=== PATIENT | male | born 1945 | race African-American/Black ===

== ENCOUNTER 2019-10-31 17:31 | Inpatient (IN) | payer BC, MEDICARE, OTHER ==
[~2019-10-31] VITALS: Ht 190.5 cm; Wt 78.2 kg
[2019-10-31 19:42] LABS: BASOPHILS % 0.7 % (0.0-2.0); EOSINOPHILS % 0.6 % (0.0-5.0); HEMATOCRIT. 37.6 % (42.0-52.0); HEMOGLOBIN. 12.7 g/dL (14.0-18.0); MEAN CORPUSCULAR HEMOGLOBIN 31.8 pg (28.0-32.0); MEAN CORPUSCULAR VOLUME 93.7 fL (80.0-94.0); MONOCYTES % 4.8 % (2.0-8.0); NEUTROPHILS % 83.9 % (40.0-76.0); PLATELET 200 x1000/uL (130-400); RED BLOOD CELL COUNT 4.01 mill/uL (4.7-6.1); RED CELL DISTRIBUTION WIDTH 13.7 % (11.6-14.6)
[2019-10-31 19:49] LABS: CHLORIDE 113 mEq/L (98-107)
[2019-10-31 19:53] LABS: ETHANOL BLOOD < 10 mg/dL
[2019-11-01] MEDS ORDERED: ASPIRIN 325MG TABLET PO ONE (02:00)
[2019-11-01 04:38] LABS: CLARITY URINE CLOUDY (CLEAR); COLOR URINE DARK YELLOW (YELLOW); KETONES URINE TRACE (NEGATIVE); LEUKOCYTE ESTERASE URINE TRACE (NEGATIVE); NITRITE URINE NEGATIVE (NEGATIVE); OCCULT BLOOD URINE TRACE (NEGATIVE); PROTEIN URINE 1+ (NEGATIVE); SPECIFIC GRAVITY URINE 1.031 (1.005-1.030)
[2019-11-01 04:46] LABS: *BARBITURATES SCREEN URINE NEGATIVE (NEGATIVE); CANNABINOID URINE SCREEN PRESUMTIVE POSITIVE (NEGATIVE)
[2019-11-01 04:47] LABS: *AMPHETAMINES SCREEN URINE NEGATIVE (NEGATIVE); *BENZODIAZEPINES SCREEN URINE NEGATIVE (NEGATIVE); *COCAINE SCREEN URINE NEGATIVE (NEGATIVE); METHADONE URINE SCREEN NEGATIVE (NEGATIVE); OPIATES URINE SCREEN NEGATIVE (NEGATIVE)
[2019-11-01 04:48] LABS: PHENCYCLIDINE URINE SCREEN NEGATIVE (NEGATIVE)
[2019-11-01] MEDS ORDERED: ACETAMINOPHEN 325MG TABLET PO PRN (08:45)
[2019-11-01] MEDS ORDERED: ONDANSETRON HCL 4MG/2ML INJ IV PRN (08:45)
[2019-11-01 10:32] VITALS: BP 157/89
[2019-11-01 12:00] VITALS: BP 170/87
[2019-11-01] MEDS: FUROSEMIDE 40MG/4ML VIAL IVP SCH (12:29)
[2019-11-01] MEDS ORDERED: HYDRALAZINE 20MG/ML VIAL IV PRN (14:00)
[2019-11-01] MEDS: HYDRALAZINE HCL 50MG TABLET PO SCH ×2 (15:30→21:41)
[2019-11-01 16:00] VITALS: BP 150/77
[2019-11-01 17:19] LABS: CREATINE KINASE MB FRACTION 18.5 ng/mL (0.5-3.6)
[2019-11-01] MEDS: AMLODIPINE 5MG TABLET PO SCH (21:41)
[2019-11-02] VITALS (7 sets, daily range): BP systolic 110–157; BP diastolic 50–84
[2019-11-02] MEDS: HYDRALAZINE HCL 50MG TABLET PO SCH ×3 (05:48→22:50)
[2019-11-02 07:22] LABS: BASOPHILS % 0.8 % (0.0-2.0); EOSINOPHILS % 2.1 % (0.0-5.0); HEMATOCRIT. 37.2 % (42.0-52.0); HEMOGLOBIN. 12.5 g/dL (14.0-18.0); LYMPHOCYTES % 32.4 % (20.0-50.0); MEAN CORPUSCULAR HEMOGLOBIN 31.4 pg (28.0-32.0); MEAN CORPUSCULAR VOLUME 93.6 fL (80.0-94.0); MEAN PLATELET VOLUME 9.7 fl (7.4-10.4); MONOCYTES % 8.5 % (2.0-8.0); NEUTROPHILS % 56.2 % (40.0-76.0); PLATELET 189 x1000/uL (130-400); RED BLOOD CELL COUNT 3.97 mill/uL (4.7-6.1); RED CELL DISTRIBUTION WIDTH 13.6 % (11.6-14.6)
[2019-11-02 07:40] LABS: CHLORIDE 106 mEq/L (98-107)
[2019-11-02] MEDS ORDERED: INFLUENZA VIRUS VACCINE(AFLURIA) 0.5ML SYR IM ONE (09:00)
[2019-11-02] MEDS ORDERED: PNEUMOCOCCAL 23-VAL P-SAC VAC 0.5 ML IM ONE (09:00)
[2019-11-02] MEDS: FUROSEMIDE 40MG/4ML VIAL IVP SCH (09:07)
[2019-11-02] MEDS: AMLODIPINE 5MG TABLET PO SCH ×2 (09:08→22:50)
[2019-11-02] MEDS ORDERED: POTASSIUM CHLORIDE 20MEQ TABLET SR PO NR (12:00)
[2019-11-02] MEDS: IPRATROPIUM/ALBUTEROL 0.5-3(2.5)MG/3ML NEB HHN SCH ×2 (20:30→20:37)
[2019-11-03] VITALS: BP 123/89
[2019-11-03] MEDS: IPRATROPIUM/ALBUTEROL 0.5-3(2.5)MG/3ML NEB HHN SCH ×4 (01:13→14:12)
[2019-11-03 04:00] VITALS: BP 126/79
[2019-11-03] MEDS: HYDRALAZINE HCL 50MG TABLET PO SCH (06:04)
[2019-11-03 08:00] VITALS: BP 134/53
[2019-11-03 08:58] LABS: CHLORIDE 107 mEq/L (98-107)
[2019-11-03] MEDS: FUROSEMIDE 40MG/4ML VIAL IVP SCH (09:29)
[2019-11-03] MEDS ORDERED: REGADENOSON 0.4 MG/5 ML IV NR (10:00)
[2019-11-03] MEDS ORDERED: REGADENOSON 0.4 MG/5 ML IV ONE (10:28)
[2019-11-03] MEDS ORDERED: FURO-151 MT (11:18)
[2019-11-03] MEDS ORDERED: HYDR-4135 MT (11:18)
[2019-11-03] MEDS ORDERED: AMLO5TAB88 MT (11:18)
[2019-11-03 12:00] VITALS: BP 144/81
[2019-11-03 14:14] VITALS: BP 144/81
== END 2019-11-03 15:40 | disposition home or self-care (01) | DRG 291 ==
LOC: ER 17:31 → 8WST 22:41 → EDBEDREQ 22:44 → EDBEDREQTM 22:44 → ENRESERV 11-01 08:58
PROVIDERS: ADMIT Internal Medicine; ATTEND Internal Medicine
DX: I11.0 Hypertensive heart disease with heart failure (principal); N17.0 Acute kidney failure with tubular necrosis; E44.1 Mild protein-calorie malnutrition; E87.1 Hypo-osmolality and hyponatremia; E87.2 Acidosis; I50.43 Acute on chronic combined systolic (congestive) and diastolic (congestive) heart failure; G90.8 Other disorders of autonomic nervous system; D64.9 Anemia, unspecified; E87.8 Other disorders of electrolyte and fluid balance, not elsewhere classified; J40 Bronchitis, not specified as acute or chronic; F12.90 Cannabis use, unspecified, uncomplicated; J44.9 Chronic obstructive pulmonary disease, unspecified; Z87.891 Personal history of nicotine dependence; Z68.21 Body mass index [BMI] 21.0-21.9, adult
CPT/HCPCS: 36415; 71045; 78452; 80048; 80061; 80305; 80320; 81003; 82550; 82553; 83605; 83880; 84145; 84443; 84484; 93005; 93017; 93306; 97162; 99285; A9500; J1940; J2785; J7620; G0480